=== PATIENT | female | born 2000 | race Hispanic/Latino ===

== ENCOUNTER 2022-08-01 12:52 | Emergency (ER) | payer OTHER, SELFPAY ==
[2022-08-01 12:53] VITALS: BP 124/84; PULSE 74; RESP 18; TEMP 36.6; O2SAT 100; BMI 23.8
[2022-08-01 13:13] VITALS: PULSE 82; RESP 14; O2SAT 100
[2022-08-01] MEDS: DiphenhydrAMINE 50 MG/ML Syringe 25 MG IV (14:15)
[2022-08-01] MEDS: MethylPREDNISolone 125 MG/2 ML Vial IV (14:15)
--- NOTE | 2022-08-01 14:21 | EDS_ITS ---
HPI History of Present Illness Chief Complaint: Allergic Reaction Detail of Chief Complaint: Allergic reaction with onset approximately 11 AM Informant: patient and friend Onset/Context/Timing Onset: Today and Hours Context: Sudden Onset Timing: Continuous Quality: Pruritic rash, scratchy throat, swollen tongue Location: Generalized Current Severity: Mild Maximum Severity: Mild Worsened by: Nothing Relieved by: Nothing Associated Symptoms Associated Symptoms: No wheezing, orthostatic symptoms, vomiting or diarrhea Narrative Narrative: Patient is a 21-year-old female who presents with pruritic erythematous rash with tongue swelling, scratchy throat. She denies drooling. She denies change in voice. She denies chest pain. She denies nausea vomiting or diarrhea. She denies orthostatic symptoms. She denies recent ingestion of nuts, berries or shellfish. She has never had allergic reaction before. She does state her scalp neck and chest are itchy. Prior similar symptoms: No Recent Illness/Hospitalization: No PFSH PFSH Medical History no medical history no medical history Home Medications diphenhydramine HCl 25 mg capsule (Benadryl) 25 mg PO .qid #16 caps 08/01/22 [Rx Last Taken Unknown] famotidine 20 mg tablet 20 mg PO BID #8 TABLETS 08/01/22 [Rx Last Taken Unknown] prednisone 20 mg tablet 60 mg PO DAILY #12 TABLETS 08/01/22 [Rx Last Taken Unknown] Allergy/AdvReac Type Severity Reaction Status Date / Time No Known Allergies Allergy Verified 08/01/22 12:52 Surgical History no surgical history Social History (Updated 08/01/22 @ 14:[address] Darryl Kenyon MD) household members: family Smoking Status: Never smoker substance use type: does not use ROS ROS ED Constitutional Constitutional ED: Denies chills, fever(s), subjective, sweats or weight loss Eyes Eyes: Denies blurry vision, change in vision or diplopia ENT ENT ED: Denies ear pain, rhinorrhea or sore throat Cardiovascular Cardiovascular: Denies chest pain, orthopnea, palpitations, paroxysmal nocturnal dyspnea or racing heartbeat Respiratory/Chest Respiratory/Chest: Denies cough, dyspnea, dyspnea on exertion, orthopnea or paroxysmal nocturnal dyspnea Gastrointestinal Gastrointestinal: Denies diarrhea, nausea or vomiting Musculoskeletal Musculoskeletal: Denies arthralgias or myalgias Integumentary Reports rash Neurologic Neurologic: Denies paresthesias or weakness Psychiatric Psychiatric: Denies anxiety Hematologic/Lymphatic Hematologic/Lymphatic: Reports systems reviewed and no addt'l complaints, except as documented Allergic/Immunologic Allergic/Immunologic ED: Reports tongue swelling; Denies mouth swelling or urticaria EXAM Physical Exam Const Vital Signs: 08/01/22 12:53 08/01/22 13:13 08/01/22 15:00 Temperature 97.8 F Temperature Source Temporal Pulse Rate 74 82 78 Respiratory Rate 18 14 16 Blood Pressure 124/84 H 118/78 Blood Pressure Mean 97 91 Pulse Ox 100 100 98 Oxygen Delivery Method Room Air Room Air Room Air Positive well nourished and well developed General Appearance ED: well developed and NAD; Negative for cyanotic, diaphoretic or pallor HEENT Reports moist mucous membranes HEENT Narrative: Uvula midline. No abnormality the posterior pharynx. There is no evidence of angioedema. Head is atraumatic normocephalic. Ears normal. Nares patent. No drainage. Eyes PERRL and EOMs intact bilaterally Eyes Narrative: Conjunctive a is pink and not injected. General Eye ED: Yes scleral icterus; Negative for pale conjunctiva Neck no lymphadenopathy, supple and no JVD Neck Narrative: Trachea is midline. There is no in-store expiratory stridor. Chest Wall palpation of chest normal; Negative for inspection of chest normal Chest Narrative: Patient has a blanching erythematous confluent rash noted anterior posterior neck and upper torso anteriorly and posteriorly Resp normal respiratory effort and clear to auscultation bilaterally Cardio regular rate, regular rhythm, S1 normal heart sound, S2 normal heart sound and no murmurs GI normal to inspection, nondistended, normoactive bowel sounds, non-tender, non- distended and no masses; Negative for hepatosplenomegaly Back/Spine no CVA tenderness Cervical Spine: Negative for cervical spine tenderness Thoracic Spine / Upper Back: Negative for thoracic spinal tenderness Lumbar Spine / Lower Back: Negative for lumbar spinal tenderness Extremity normal to inspection General Extremety ED: Negative for edema or tenderness General Extremity: Negative for edema Neuro oriented x3, CN's II-XII intact bilaterally and no sensory deficits noted Sensorium / Orientation: alert Motor Exam: strength 5/5 throughout Psych mental status grossly normal Skin no wounds and skin turgor normal Skin Narrative: Blanching erythematous confluent rash noted on face, neck and torso. General Skin Exam: elasticity normal; Negative for jaundice or pallor Rashes: rashes noted MDM MDM MDM Narrative Medical decision making narrative: Patient has a generalized allergic reaction. Since patient is complaining of tongue swelling and believe this to be allergic reaction she was treated with IV Benadryl, Pepcid and Solu-Medrol. She will be observed. Is really test at 1513. Her symptoms have resolved. She was discharged to home on H1, H2 delmy and prednisone. Nurse informing that she had peanuts 2 to 3 hours prior to presentation. Will instruct patient not to eat peanuts. She was referred to the [facility] the [facility] since she is an international student. She was told to contact the office today to schedule appointment for allergy testing. There were no old records since patient is an international student. Discharge Plan Triage Chief Complaint: Allergic Reaction ED Provider: Darryl Kenyon Dx/Rx/DC Orders Clinical Impression: Allergic reaction Instructions: ED General Allergic Reactions Prescriptions: New prednisone 20 mg tablet 60 mg PO DAILY Qty: 12 0RF famotidine [famotidine] 20 mg tablet 20 mg PO BID Qty: 8 0RF diphenhydramine HCl [Benadryl] 25 mg capsule 25 mg PO .qid Qty: 16 0RF Primary Care Provider: Care Physician,No Primary Referrals: [facility] [Group of Physicians] - As soon as possible Care Physician,No Primary [Primary Care Provider] - Activity Restrictions/Additional Instructions: Since you had nuts earlier today prior to reaction would recommend not eating any nuts until you are allergy tested. Take medication as prescribed Disposition Disposition: Home, Self Care
[2022-08-01] MEDS: Famotidine 200 MG/20 ML MDV 20 MG in 0.9% Normal Saline (Pres. free 8 ML 300 MG IV (14:25)
[2022-08-01 15:00] VITALS: BP 118/78; PULSE 78; RESP 16; O2SAT 98
== END 2022-08-01 15:48 | disposition home or self-care (01) ==
PROVIDERS: Emergency Provider Emergency Medicine; Visit Provider Emergency Medicine
DX: T78.40XA Allergy, unspecified, initial encounter (principal)
CPT/HCPCS: 96365; 96375; 99282; J3490

== ENCOUNTER → 2024-09-02 | Outpatient (CLI) | payer OTHER, SELFPAY | END | disposition home or self-care (01) | PROVIDERS: PCP Nurse Practitioner Family; Visit Provider Nurse Practitioner Family | DX: N89.8 Other specified noninflammatory disorders of vagina (principal); R30.0 Dysuria | CPT/HCPCS: 87086; 87210 ==